=== PATIENT | female | born 1985 | race Caucasian/White ===

== ENCOUNTER 2016-11-11 21:16 | Emergency (ER) | payer MEDICAID ==
[2016-11-11 21:17] VITALS: BMI 54.2
[2016-11-11 21:45] VITALS: O2SAT 97
--- NOTE | 2016-11-11 22:02 | C.PDOC ---
History Of Present Illness <Joselyn Kumari - Last Filed: 11/13/16 06:45> <Diana Berg - Last Filed: 11/13/16 13:15> 31 yo female come in for evaluation of Right wrist for past 2 weeks. Pt sts, " went to [place] for vacation and pain over Right wrist was constant and spread up to Right upper arm and then to Left hand. Pain restricted me to move my fingers over both hands". Pt admits, was sick with URI sx prior to onset of wrist pain, completed Zithromax and had B12 injection after after that gradually developed Right wrist pain. Pt sts, at present time, pain is generalized, mostly over B/L arm and mild over B/L legs. Otherwise, pt denies fever, chills, headache, dizziness, vertigo, visual changes, neck pain, rash, CP , SOB, dyspnea, cough, wheezing, abd. pain, V/D, pt denies weakness, sensory or vascular deficit to B/L UEs and LEs, denies nay other active complaints. ( Joselyn Kumari) History Per: Patient <Joselyn Kumari - Last Filed: 11/13/16 06:45> <Diana Berg - Last Filed: 11/13/16 13:15> Time Seen by Provider: 11/11/16 21:50 Chief Complaint (Nursing): Upper Extremity Problem/Injury Past Medical History Reviewed: Historical Data, Nursing Documentation, Vital Signs - Medical History PMH: Gall Bladder Disease Denies: Chronic Kidney Disease Other PMH: Obesity Surgical History: Cholecystectomy, Tonsillectomy Family History: States: No Known Family Hx - Social History Hx Tobacco Use: No Hx Alcohol Use: Yes Hx Substance Use: No - Immunization History Hx Tetanus Toxoid Vaccination: No Hx Influenza Vaccination: No Hx Pneumococcal Vaccination: No <Joselyn Kumari - Last Filed: 11/13/16 06:45> Review Of Systems Except As Marked, All Systems Reviewed And Found Negative. Constitutional: Positive for: Malaise. Negative for: Fever, Chills Eyes: Negative for: Vision Change, Eyelid Inflammation ENT: Negative for: Ear Discharge, Nose Discharge, Throat Pain Cardiovascular: Negative for: Chest Pain, Palpitations, Edema, Light Headedness Respiratory: Negative for: Cough, Shortness of Breath, Hemoptysis, Wheezing Gastrointestinal: Negative for: Nausea, Vomiting, Abdominal Pain, Diarrhea Genitourinary: Negative for: Dysuria, Frequency, Incontinence Musculoskeletal: Positive for: Arm Pain (B/L), Leg Pain. Negative for: Neck Pain, Back Pain Skin: Negative for: Rash, Bruising Neurological: Negative for: Weakness, Numbness, Altered Mental Status, Headache , Dizziness <Joselyn Kumari - Last Filed: 11/13/16 06:45> Physical Exam - Physical Exam Appears: Well, Non-toxic, No Acute Distress Skin: Normal Color, Warm, Dry, No Rash, No Ecchymosis Eye(s): bilateral: PERRL Nose: Normal Neck: Supple Cardiovascular: Rhythm Regular Respiratory: No Stridor, No Wheezing Gastrointestinal/Abdominal: Soft, No Tenderness Back: Normal Inspection Extremity: No Pedal Edema Neurological/Psych: Oriented x3, Normal Speech <Joselyn Kumari - Last Filed: 11/13/16 06:45> ED Course And Treatment O2 Sat by Pulse Oximetry: 97 Pulse Ox Interpretation: Normal Progress Note: Patient was explained and given multiple differential for reason of pain. Pt was offered blood work and further evaluation. refused and left ER. <Joselyn Kumari - Last Filed: 11/13/16 06:45> Disposition - Disposition Disposition Time: 21:55 <Joselyn Kumari - Last Filed: 11/13/16 06:45> <Diana Berg - Last Filed: 11/13/16 13:15> - Disposition Disposition: HOME/ ROUTINE Condition: IMPROVED Additional Instructions: Continue taking Ibuprofen. Use wrist braces as instructed. Follow up with your doctor for further evaluation and treatment. Return to the ER if you develop weakness, numbness, redness, swelling, worsening of symptoms or if you have any other concerns. Instructions: Tendinitis (ED) - Clinical Impression Clinical Impression: Pain in both upper extremities <Joselyn Kumari - Last Filed: 11/13/16 06:45> - PA / [employer] / Resident Statement MD/ has examined the patient and agrees with the treatment plan. (Please disregard this entire chart and this statement. Please refer to my chart on the same day.) <Diana Berg - Last Filed: 11/13/16 13:15> - Scribe Statement Provider Attestation: Please disregard this chart and refer to my chart on this patient. (Diana Berg)
[2016-11-11 23:13] LABS: RBC URINE 8 /hpf (0-3); URINE BACTERIA RARE (<OCC); URINE BILIRUBIN NEGATIVE (NEGATIVE); URINE BLOOD 1+ (NEGATIVE); URINE CALCIUM OXALATE CRYSTALS OCC /hpf (<OCC); URINE COLOR Yellow (YELLOW); URINE GLUCOSE (UA) NORMAL (Normal); URINE KETONE NEGATIVE (NEGATIVE); URINE LEUKOCYTE ESTERASE NEG Leu/uL (Negative); URINE PROTEIN 1+ mg/dL (NEGATIVE); URINE UROBILINOGEN NORMAL mg/dL (0.2-1.0); WBC URINE 1 /hpf (0-5)
--- NOTE | 2016-11-11 23:16 | C.PDOC ---
History Of Present Illness Pt c/o atraumatic b/l upper extremity pain. Time Seen by Provider: 11/11/16 21:50 Chief Complaint (Nursing): Upper Extremity Problem/Injury History Per: Patient Onset/Duration Of Symptoms: Days (8) Current Symptoms Are (Timing): Still Present Quality: Aching, "Pain" Severity: Moderate Exacerbating Factor(s): Movement Recent travel outside of the [facility]: Yes (to [place], but symptoms started prior.) Additional History Per: Prior Records Past Medical History Reviewed: Historical Data, Nursing Documentation, Vital Signs Vital Signs: Last Vital Signs Temp 98.1 F 11/11/16 21:41 Pulse 76 11/11/16 21:41 Resp 20 11/11/16 21:41 BP 139/91 H 11/11/16 23:25 Pulse Ox 97 11/11/16 23:22 - Medical History Other PMH: PCOS Surgical History: Cholecystectomy, Tonsillectomy Family History: States: No Known Family Hx, Unknown Family Hx - Social History Hx Tobacco Use: No Hx Alcohol Use: Yes Hx Substance Use: No - Immunization History Hx Tetanus Toxoid Vaccination: No Hx Influenza Vaccination: No Hx Pneumococcal Vaccination: No Review Of Systems Except As Marked, All Systems Reviewed And Found Negative. Constitutional: Negative for: Fever, Weakness ENT: Negative for: Throat Pain Cardiovascular: Negative for: Chest Pain Respiratory: Positive for: Cough. Negative for: Shortness of Breath, Hemoptysis Gastrointestinal: Negative for: Vomiting, Abdominal Pain Musculoskeletal: Negative for: Neck Pain Skin: Negative for: Rash Neurological: Negative for: Weakness, Numbness, Seizures, Altered Mental Status , Headache Physical Exam - Physical Exam Appears: Non-toxic, No Acute Distress Skin: Warm, Dry, Other (Sunburn on body with skin peeling) Head: Atraumatic, Normacephalic Eye(s): bilateral: Normal Inspection, PERRL, EOMI Oral Mucosa: Moist Neck: Normal ROM, Supple Chest: Symmetrical Cardiovascular: Rhythm Regular Respiratory: Normal Breath Sounds, No Accessory Muscle Use Gastrointestinal/Abdominal: Soft, No Tenderness Back: No CVA Tenderness Extremity: Normal ROM, No Calf Tenderness Neurological/Psych: Oriented x3, Normal Speech, Normal Cognition, Normal Motor, Normal Sensation ED Course And Treatment - Laboratory Results Urine POC: Negative O2 Sat by Pulse Oximetry: 97 Pulse Ox Interpretation: Normal - Radiology CXR: Interpreted by Me, Viewed By Me CXR Interpretation: Yes: No Acute Disease Progress Note: b/l wrist/forearm braces were placed by me. Reassessment Condition: Improved Medical Decision Making Medical Decision Making: Tendonitis vs. carpal tunnel vs. arthralgias. Disposition Counseled Patient/Family Regarding: Studies Performed, Diagnosis, Need For Followup - Disposition Disposition: HOME/ ROUTINE Disposition Time: 23:41 Condition: IMPROVED Additional Instructions: Continue taking Ibuprofen. Use wrist braces as instructed. Follow up with your doctor for further evaluation and treatment. Return to the ER if you develop weakness, numbness, redness, swelling, worsening of symptoms or if you have any other concerns. Instructions: Tendinitis (ED) - Clinical Impression Clinical Impression: Pain in both upper extremities
[2016-11-12] VITALS: BP 128/83; PULSE 72; RESP 18; TEMP 97.7
--- NOTE | 2016-11-12 09:01 | RAD ---
HISTORY: Cough COMPARISON: No prior. TECHNIQUE: Chest PA and lateral FINDINGS: LUNGS: No active pulmonary disease. PLEURA: No significant pleural effusion identified. No pneumothorax apparent. CARDIOVASCULAR: Normal. OSSEOUS STRUCTURES: No significant abnormalities. VISUALIZED UPPER ABDOMEN: Normal. OTHER FINDINGS: None. IMPRESSION: No active disease.
== END 2016-11-12 00:01 | disposition home or self-care (01) ==
LOC: C.ER 21:16
DX: M79.602 Pain in left arm (principal); M79.601 Pain in right arm
CPT/HCPCS: 71020; 81001; 84703; 96372; 99284; J1885